=== PATIENT | female | born 1985 | race Asian ===

== ENCOUNTER 2023-06-04 08:16 | Outpatient (CLI) | payer BC ==
[2023-06-04 08:44] LABS: HCT - HEMATOCRIT 43.5 % (37.0-47.0); HGB - HEMOGLOBIN 14.1 g/dL (12.0-16.0); MEAN CORPUSCULAR HEMOGLOBIN 30.8 pg (27.0-31.0); MEAN CORPUSCULAR HGB CONC 32.4 g/dL (32.0-36.0); MEAN PLATELET VOLUME 9.4 fL (7.9-10.8); RED BLOOD COUNT 4.58 10^6/uL (4.20-5.40); WHITE BLOOD COUNT 5.2 x10^3/uL (4.8-10.8)
[2023-06-04 09:04] LABS: CHOL/HDL RATIO 4.6 (<4.4); CHOLESTEROL 277 mg/dL; HDL CHOLESTEROL 60 mg/dL; LDL CHOLESTEROL,CALCULATED 174 mg/dL; LDL/HDL RATIO 2.9 (<4.4); TRIGLYCERIDES 213 mg/dL (48-352); VLDL CHOLESTEROL 43 mg/dL
[2023-06-04 13:10] LABS: ESTIMATED AVERAGE GLUCOSE 103 mg/dL (70-100); HEMOGLOBIN A1c% 5.2 % (4.27-6.07)
[2023-06-05 03:10] LABS: HCV AB Non Reactive (Non Reactive); HIV SCREEN 4TH GENERATION Non Reactive (Non Reactive)
[2023-06-05 04:09] LABS: HBsAG SCREEN Negative (Negative); HEPATITIS B SURFACE AB QUAL Non Reactive (.); RPR Non Reactive (Non Reactive)
[2023-06-05 07:10] LABS: HSV 1 IGG TYPE SPEC <0.91 index (0.00-0.90); HSV 2 IGG TYPE SPEC <0.91 index (0.00-0.90)
== END 2023-06-04 08:17 | disposition home or self-care (01) ==
LOC: LAB 08:16
PROVIDERS: ATTEND Obstetrics & Gynecology
DX: Z11.3 Encounter for screening for infections with a predominantly sexual mode of transmission (principal); Z13.220 Encounter for screening for lipoid disorders; Z13.1 Encounter for screening for diabetes mellitus; Z13.0 Encounter for screening for diseases of the blood and blood-forming organs and certain disorders involving the immune mechanism
CPT/HCPCS: 36415; 80061; 83036; 83721; 85027; 86592; 86695; 86696; 86706; 86803; 87340; 87389